=== PATIENT | female | born 1985 | race Caucasian/White ===

== ENCOUNTER 2018-09-11 07:04 | Inpatient (IN) | payer OTHER ==
[~2018-09-11] VITALS: Ht 170.2 cm; Wt 79.5 kg
[2018-09-11] VITALS (59 sets, daily range): BP systolic 87–144; BP diastolic 48–86; PULSE 67–122; TEMP 97.3–98.2
--- NOTE | 2018-09-11 07:10 | NUR ---
Presents to labor and delivery for induction of labor. Assessment done, questions offererd and answered. Vag exam done, dilated to one.
[2018-09-11] MEDS ORDERED: PRENATAL MVI (07:31)
[2018-09-11] MEDS ORDERED: CALCIUM CARBON650 M2 (07:32)
--- NOTE | 2018-09-11 08:15 | NUR ---
Pitocin 2 anastasia units iv started as ordered and per protocol.
--- NOTE | 2018-09-11 08:45 | NUR ---
Dr. Kothari here, arom done. Large amount of meconium fluid note by [place] Mejia r.n. Pad changed.
[2018-09-11 08:50] LABS: BASO % 0.2 % (0.0-2.0); EOS % 0.1 % (0-4.0); GRAN # 6.7 (1.4-6.5); GRAN % 76.9 % (42.2-75.2); HEMOGLOBIN 11.2 g/dl (12.5-16.0); LYMPH # 1.5 (1.2-3.4); LYMPH % 17.4 % (20.0-51.0); MEAN CELL VOLUME 88 fl (80.0-100.0); MEAN CORPUSCULAR HEMOGLOBIN 29 pg (27.0-31.0); MEAN CORPUSCULAR HGB CONC 33 g/dl (33.0-37.0); MONO # 0.5 (0.1-0.6); MONO % 5.2 % (1.7-9.3); PLATELET COUNT 174 K/mm3 (130-400); RED BLOOD COUNT 3.86 M/mm3 (4.10-5.30); REDCELL DISTRIBUTION WIDTH-CV 13.2 % (11.5-14.5)
[2018-09-11 08:53] LABS: HEMATOCRIT 33.8 % (37.0-47.0)
--- NOTE | 2018-09-11 10:15 | NUR ---
Ambulates to the bathroom and then back to bed. heart tones down in the one hundreds then back up to 136. Repositioned patient, 028L on, pitocin off. See physicians notification please.
--- NOTE | 2018-09-11 11:15 | NUR ---
Patient tearful. States worrying about baby. Let her know that baby is doing fine right now. Let her know that his heart rate is staying up. Asked if she would like to get up on birthing ball or rocking chair. States would like to sit up on the birthing ball.
--- NOTE | 2018-09-11 12:00 | NUR ---
Continues to sit up on birthing ball eating a popcicle. Denies any other need at this time.
--- NOTE | 2018-09-11 12:45 | NUR ---
Dr. Kothari here, vag exam done. Attempts to place a scalp electrode. States unable to place.
--- NOTE | 2018-09-11 13:00 | NUR ---
Back on birthing ball. This nurse to lunch, nurse Be watching patient.
--- NOTE | 2018-09-11 14:00 | NUR ---
Continues to sit up on birthing ball. Denies any needs at this time.
--- NOTE | 2018-09-11 15:30 | NUR ---
8258 Dr. Kothari called about patient having lates. Let her know patient repositioned side to side. States turn the pitocin down to 20 anastasia units.
[2018-09-11] MEDS ORDERED: MOTRIN 800800 MG/TAB PO (15:38)
[2018-09-11] MEDS ORDERED: PERCOCET 325 MG1 TA2 PO (15:38)
--- NOTE | 2018-09-11 16:15 | NUR ---
Anesthesia here for epidural. 1626 Space and straight shot given by anesthesia Reji Benjamin.
--- NOTE | 2018-09-11 16:30 | NUR ---
Dr. Kothari here in room, watches monitor strip. Repositioned from left to right side.
--- NOTE | 2018-09-11 16:45 | NUR ---
[address] Kothari. Ephedrine 10 mg iv given as ordered by Dr. Kothari for blood pressure of 111/74.
--- NOTE | 2018-09-11 16:50 | NUR ---
Anesthesia notified of patient not comfortable. Medication given by anesthesia Reji Benjamin c.r.n.a.
--- NOTE | 2018-09-11 17:15 | NUR ---
1718 Park placed per sterile technique, clear yellow urine noted.
--- NOTE | 2018-09-11 18:00 | NUR ---
Pitocin 6 anastasia units iv started as ordered by Dr. Kothari.
--- NOTE | 2018-09-11 22:00 | NUR ---
1829- Bedside report from DEVYN Forrest. on unit monitoring FHT's. Orders from to increase Pitocin every 15 minutes by 2mU. Subtle late decels noted on FHT strip. Patient repositioned to RL. 1854- Recurrent subtle late decels noted on FHT strip. Patient repositioned to LL. 1929- at bedside. SVE - by . updated by RN on FHT strip status and recurrent late decels. Orders to continue to increase Pitocin given. 1999- at bedside. SVE by . Delivery process and pushing explained to patient by at this time. 2009- at bedside. SVE Complete. 2014- Park removed. Patient begins pushing with during contractions. 2130- of viable baby boy. Meconium fluid noted upon delivery. Cord clamped and cut. Skin to skin initiated with mom and baby. Nursery RN, DEVYN George takes over care at this time. Pitocin off. 2133- Spontaneous delivery of placenta. Placenta noted to be meconium stained. 2nd degree perineal laceration with mediolateral episiotomy repaired by . Pericare provided by RN. Fundus massaged to firm by RN. Placenta sent to pathology. Cord gasses collected. Pitocin infusing at 333 ml/hr.
[2018-09-12] VITALS: BP 103/62; PULSE 83; TEMP 98.3
--- NOTE | 2018-09-12 | NUR ---
Patient up to side of bed for epidural catheter removal. Patient tolerated procedure well. Patient standing at edge of bed, shifting weight from side to side. Patient states she feels lightheaded and is instructed to sit back on edge of bed. After rest, patient pivoted to wheelchair and transported to restroom. Patient pivoted to toilet without difficulty. Patient was able to void without difficulty. While providing pericare patient states she is lightheaded and nauseated. Cold cloth applied to back and chest. Patient appears very diaphoretic and pale at this time. 2nd RN called to [facility] for help with transfer to wheelchair. Patient transferred to wheelchair with assist of 2 without difficulty. Patient transported by wheelchair to PP room. Patient appears to have color returned to face and lips and states she is feeling much better at this time. Advised patient to call RN for help before ambulating to restroom. Will continue to monitor. VSS.
[2018-09-12 04:00] VITALS: BP 104/68; PULSE 78; TEMP 98
[2018-09-12 08:30] VITALS: BP 100/57; PULSE 78; TEMP 98.2
--- NOTE | 2018-09-12 09:09 | NUR ---
Initial visit; Parents thanked Electron Tube Assembler for offering congratulations and God's blessings for the of their son. Electron Tube Assembler thanked them for choosing [facility].
[2018-09-12 12:20] VITALS: BP 94/61; PULSE 98; TEMP 98.3
[2018-09-12 16:44] VITALS: BP 98/54; PULSE 94; TEMP 98.3
[2018-09-12 20:40] VITALS: BP 98/58; PULSE 77; TEMP 98.2
[2018-09-13 07:00] VITALS: BP 92/56; PULSE 83; TEMP 97.9
--- NOTE | 2018-09-13 10:40 | NUR ---
Congratulated the parents on their new baby.
== END 2018-09-13 12:15 | disposition home or self-care (01) | DRG 807 ==
LOC: LDR 07:04 → OB 09:33
PROVIDERS: ADMIT Obstetrics & Gynecology
PROC: 10D07Z6 Extraction of Products of Conception, Vacuum, Via Natural or Artificial Opening (ICD-10-PCS; principal; 2018-09-11)
PROC: 10907ZC Drainage of Amniotic Fluid, Therapeutic from Products of Conception, Via Natural or Artificial Opening (ICD-10-PCS; 2018-09-11)
PROC: 3E033VJ Introduction of Other Hormone into Peripheral Vein, Percutaneous Approach (ICD-10-PCS; 2018-09-11)
PROC: 0W8NXZZ Division of Female Perineum, External Approach (ICD-10-PCS; 2018-09-11)
DX: O76 Abnormality in fetal heart rate and rhythm complicating labor and delivery (principal); Z37.0 Single live birth; Z3A.40 40 weeks gestation of pregnancy; Z88.0 Allergy status to penicillin
CPT/HCPCS: J2590; J2795; J7120

== ENCOUNTER → 2018-09-16 | Outpatient (CLI) | payer OTHER ==
[~2018-09-16] MED LIST: CALCIUM CARBON650 M2; MOTRIN 800800 MG/TAB PO; PERCOCET 325 MG1 TA2 PO; PRENATAL MVI
--- NOTE | 2018-09-16 15:36 | NUR ---
Pt, Cecilia Otero, presents for outpatient consult with 5 day old baby boy, Jay Otero, and her spouse Lakhwinder. They were referred by Dr. Sabillon because Jay had not latched well for several hours after discharge and was seen by Dr. Sabillon yesterday and his weight was noted to be 7#8oz, 10% below weight. Jay was born by Vacuum extraction on [birth year] and weighed 8#2.9oz (3710 gms). Discharge weight was 8#1oz, and as noted above at four days of age he was 7#8oz. They were advised to pump and bottle feed until this consult to evaluate latch and milk transfer. Cecilia reports Jay attempt to latch, acts very frustrated, as though there is no milk flowing. In the last 24 hours Jay has done well with bottle feeding and has recieved 1-1.75oz of EBM per feeding. This seems to keep him content, his voids and stools meet expectations and he has a yellow stool while here. Pt and LC attempt to latch Jay, he behaves as described. LC attempt SNS to keep him latched but even with the flow from SNS Jay will not remain latched, pulling back, shaking his head side to side, and crying. The nipple is easily "sandwich" manuvered well enough into his mouth to latch, yet he refuses. A nipple shield is placed with the thought a firm nipple may help him stay attached but he does not improve effort with SNS and nipple shield being offered. LC discusses that based on his strong muscle tone and tightness while trying to feed, they may want to look into infant massage or chropractic care for relaxation. The upper lip also has a thicker frenulum, LC can roll the lip but it may be restrictive and a minor sublingual frenulum is also noted. POC: Continue pumping and bottle feeding. Suggestions for increasing milk supply reviewed as pt is currently pumping about 1.5-1.75oz per pumping. Offer breast as desired. Follow up: Jay will be seen by Dr. Sabillon tomorrow. Follow up with LC as desired. Questions invited and answered.
== END ==
LOC: LAC 13:52
DX: Z39.1 Encounter for care and examination of lactating mother (principal); Z71.89 Other specified counseling

== ENCOUNTER 2022-01-21 18:24 | Inpatient (IN) | payer OTHER ==
[2022-01-21] VITALS (7 sets, daily range): BP systolic 107–118; BP diastolic 51–73; PULSE 73–113; TEMP 98–98.2
[~2022-01-21] VITALS: Ht 165.1 cm; Wt 80.0 kg
--- NOTE | 2022-01-21 19:03 | NUR ---
@1820 PATIENT ARRIVE on THE UNIT with NO APPARENT SIGN OF DISTRESS. PATIENT COMPLAINT OF CONTRACTIONS STARTING TODAY OCCURING q4-5 mins. @184 SVE 350/-3 with bloody show. @1850 Dr. Weller was notified verbally at the nursing station the patient status. Will continue to monitor pt.
[2022-01-21 20:55] LABS: BASO % 0.2 % (0.0-2.0); GRAN # 13.5 K/mm3 (1.4-6.5); GRAN % 89.3 % (42.2-75.2); HEMOGLOBIN 12.5 g/dl (12.5-16.0); LYMPH % 6.5 % (20.0-51.0); MEAN CELL VOLUME 90 fl (80.0-100.0); MEAN CORPUSCULAR HEMOGLOBIN 30 pg (27-31); MEAN CORPUSCULAR HGB CONC 34 g/dl (33.0-37.0); MEAN PLATELET VOLUME 10.6 fl (7.4-10.4); MONO # 0.5 K/mm3 (0.1-0.6); MONO % 3.5 % (1.7-9.3); PLATELET COUNT 148 K/mm3 (130-400); RED BLOOD COUNT 4.11 M/mm3 (4.10-5.30); REDCELL DISTRIBUTION WIDTH-CV 13.9 % (11.5-14.5)
[2022-01-21 21:00] LABS: HEMATOCRIT 36.8 % (37.0-47.0)
--- NOTE | 2022-01-21 22:54 | NUR ---
@ 2130 RN at the bedside for SVE10/100/+1. @[address] Zapata that patient is ready for delivery. @2149 Dr. Zapata at the bedside for delivery. @2226 baby head out with a tight nuchal. @2227 baby delivered. @2235 Placenta was delivered and Pitocin 333mu/ml.
[2022-01-22] VITALS (9 sets, daily range): BP systolic 85–131; BP diastolic 51–67; PULSE 62–86; TEMP 97.6–98.2
--- NOTE | 2022-01-22 02:01 | NUR ---
@0130 PATIENT SPOUSE CALLED OUTSTATING THE PATIENT IS SHAKING. @0132 RN TO THE BEDSIDE WITH A WARM BLANKET. RN AND SPOUSE ASSISTED PT TO DANGLE HER LEGS AND PATIENT STATED SHE DIDNT FEEL TO WELL. B/P=85/51 SITTING AND LYING IN BED 131/67. 300CC LR BOLUS WAS GIVEN TO PT FROM PREVIOUS BAG. PATIENT STATES SHE FEEL BETTER. RN INTERMITTENTLY REMOVED 400CC URING FROM PT. RUDDY [facility], PAD AND MESH PANTIES INTACT. WILL CONTINUE TO MONITOR PT.
--- NOTE | 2022-01-22 02:47 | NUR ---
@5570 PATIENT ASSISTED TO THE WHEELCHAIR AND TRANSPORTED TO AND PT TOLERATED IT WELL.
[2022-01-22] MEDS ORDERED: MOTRIN 800800 MG/TAB PO (08:28)
--- NOTE | 2022-01-22 09:17 | NUR ---
Initial visit; Patient thanked Saw Cleaner for offering congratulations and God's blessings for the of their daughter. Saw Cleaner thanked family for choosing [place].
--- NOTE | 2022-01-22 18:30 | NUR ---
Report recieved. Ambulating from restroom. Sitting on the bench eating. Updated whiteboard and reviewed POC. Questions invited and answered.
[2022-01-23 07:58] VITALS: BP 96/64; PULSE 91; TEMP 97.5
--- NOTE | 2022-01-23 13:40 | NUR ---
1340 - PATIENT COMPLAINS OF ITCHING ON HER LOWER BACK. THIS RN VISUALIZED AREA - RAISED, BUMPY RED AREA NOTED ON LOWER BACK MIDLINE. 1345 - MD TAINA NOTIFIED OF RASH AND ITCHING. MEDICATIONS ORDERED PER MD TAINA TELEPHONE ORDERS - SEE [facility] ONGOING.
[2022-01-23 15:23] VITALS: BP 110/68; PULSE 72; TEMP 98.1
== END 2022-01-23 16:03 | disposition home or self-care (01) | DRG 807 ==
LOC: LDRO 18:24 → LDR 18:55 → LDRO 19:55 → OB 19:58 → LDR 19:58 → OB 01-22 04:47
PROVIDERS: Obstetrics & Gynecology; ADMIT Obstetrics & Gynecology
PROC: 10E0XZZ Delivery of Products of Conception, External Approach (ICD-10-PCS; principal; 2022-01-21)
PROC: 0KQM0ZZ Repair Perineum Muscle, Open Approach (ICD-10-PCS; 2022-01-21)
DX: O99.824 Streptococcus B carrier state complicating childbirth (principal); Z37.0 Single live birth; O48.0 Post-term pregnancy; O70.1 Second degree perineal laceration during delivery; O69.1XX0 Labor and delivery complicated by cord around neck, with compression, not applicable or unspecified; Z3A.40 40 weeks gestation of pregnancy; Z86.16 Personal history of COVID-19
CPT/HCPCS: J2590; J2795; J7120